=== PATIENT | male | born 1945 | race Caucasian/White ===

== ENCOUNTER 2018-08-28 21:19 | Observation (INO) | payer MEDICARE, OTHER ==
[2018-08-28 22:05] LABS: ALB/GLOB RATIO 1.2 (1.1-1.8); ALBUMIN 4.2 g/dL (3.0-4.8); BLOOD UREA NITROGEN 12 mg/dL (7-21); CALCIUM 9.5 mg/dL (8.4-10.5); GFR NON-AFRICAN AMERICAN > 60
--- NOTE | 2018-08-28 22:07 | ED PDOC ---
Arrival/HPI - General Chief Complaint: Chest Pain Time Seen by Provider: 08/28/18 21:38 Historian: Patient - History of Present Illness Narrative History of Present Illness (Text): 08/28/18 21:58 72yo male with pmhx of hyperlipdemia who present with complaint of intermittent chest pain that radiates to his left arm since 1900 tonight. He describes pain as pressure-like. states he took two tabs of ASA 81mg. States his last stress test was years ago. He called and made an appointment with his [employer] School [employer] today. Denies SOB, diaphoresis, cough fever, chills, dizziness, ROSARIO, orthopnea, ripping/tearing upper back pain, abdominal pain, any other complaint. Past Medical History - Provider Review Nursing Documentation Reviewed: Yes - Psychiatric Hx Substance Use: No Family/Social History - Physician Review Nursing Documentation Reviewed: Yes Family/Social History: Unknown Family HX Smoking Status: Never Smoked Hx Alcohol Use: No Hx Substance Use: No Allergies/Home Meds Allergies/Adverse Reactions: Allergies No Known Allergies Allergy (Verified 08/28/18 21:27) Home Medications: Home Meds Medication Instructions Recorded Confirmed Atorvastatin [Lipitor] 10 tab PO DAILY 08/29/18 08/29/18 RX: Aspirin [Aspirin Chewable] 81 mg pe PO DAILY 08/29/18 08/29/18 Tamsulosin [Flomax] 0.4 cap PO DAILY 08/29/18 08/29/18 Review of Systems - Physician Review All systems were reviewed & negative as marked: Yes - Review of Systems Constitutional: Normal Eyes: Normal ENT: Normal Respiratory: Normal Cardiovascular: Chest Pain. absent: Palpitations, Edema, ROSARIO, Orthopnea Gastrointestinal: Normal Genitourinary Male: Normal Musculoskeletal: Normal Skin: Normal Neurological: Normal Endocrine: Normal Hemo/Lymphatic: Normal Psychiatric: Normal Physical Exam Vital Signs Reviewed: Yes Vital Signs Temp Pulse Resp BP Pulse Ox 08/28/18 21:35 98.4 F 81 17 125/79 99 Temperature: Afebrile Blood Pressure: Normal Pulse: Regular Respiratory Rate: Normal Appearance: Positive for: Well-Appearing, Non-Toxic, Comfortable Pain Distress: None Mental Status: Positive for: Alert and Oriented X 3 - Systems Exam Head: Present: Atraumatic, Normocephalic Pupils: Present: PERRL Extroacular Muscles: Present: EOMI Conjunctiva: Present: Normal Mouth: Present: Moist Mucous Membranes Neck: Present: Normal Range of Motion Respiratory/Chest: Present: Clear to Auscultation, Good Air Exchange. No: Respiratory Distress, Accessory Muscle Use, Wheezes, Decreased Breath Sounds, Retracting Cardiovascular: Present: Regular Rate and Rhythm, Normal S1, S2. No: Murmurs Abdomen: No: Tenderness, Distention, Peritoneal Signs Back: Present: Normal Inspection Upper Extremity: Present: Normal Inspection. No: Cyanosis, Edema Lower Extremity: Present: Normal Inspection. No: Edema Neurological: Present: GCS=15, CN II-XII Intact, Speech Normal Skin: Present: Warm, Dry, Normal Color. No: Rashes Psychiatric: Present: Alert, Oriented x 3, Normal Insight, Normal Concentration Medical Decision Making ED Course and Treatment: 08/29/18 00:39 72yo male in ED for chest pain x few hours. Labs chest xray EKG He took 325mg of ASA at home, EKG NSR chest xray NAD first CE was negative. Secondary to his cardiac risk factors he was placed on OBS for further evaluation case was TAMMIE Moore and she accepted pt for admission. Result and plan was DW the pt and he agreed - RAD Interpretation Radiology Orders: 08/28/18 21:51 CHEST PORTABLE [RAD] Stat Disposition/Present on Arrival - Present on Arrival Any Indicators Present on Arrival: No History of DVT/PE: No History of Uncontrolled Diabetes: No Urinary Catheter: No History of Decub. Ulcer: No History Surgical Site Infection Following: None - Disposition Have Diagnosis and Disposition been Completed?: Yes Diagnosis: Chest pain Disposition: HOSPITALIZED Disposition Time: 22:10 Patient Plan: Admission Patient Problems: Current Active Problems Problem Status Onset Chest pain Acute Condition: FAIR
[2018-08-28 22:12] LABS: BASO # 0.02 K/mm3 (0.0-2.0); BASO % 0.3 % (0.0-3.0); EOS # 0.3 (0.0-0.7); EOS % 4.9 % (1.5-5.0); GRAN # 3.6 (1.4-6.5); GRAN % 55.4 % (50.0-68.0); HEMOGLOBIN 13.5 g/dL (14.0-18.0); LYMPH # 2.1 (1.2-3.4); LYMPH % 31.7 % (22.0-35.0); MEAN CELL VOLUME 93.6 fl (80.0-105.0); MEAN CORPUSCULAR HEMOGLOBIN 29.7 pg (25.0-35.0); MEAN CORPUSCULAR HGB CONC 31.8 g/dl (31.0-37.0); MEAN PLATELET VOLUME 10.7 fl (7.0-11.0); MONO # 0.5 (0.1-0.6); MONO % 7.7 % (1.0-6.0); RBC 4.54 10^6/uL (3.5-6.1); RED CELL DISTRIBUTION WIDTH 13.1 % (11.5-14.5); WHITE BLOOD COUNT 6.5 10^3/uL (4.5-11.0)
[2018-08-28 22:16] LABS: B-TYPE NATRIURETIC PEPTIDE 44.6 pg/mL (0-450); TROPONIN I < 0.01 ng/mL
[2018-08-28 22:18] LABS: ALT/SGPT 27 U/L (7-56); AST/SGOT 28 U/L (17-59); INR 1.11; PARTIAL THROMBOPLASTIN TIME 30.9 Seconds (26.9-38.3); PROTHROMBIN TIME 12.3 SECONDS (9.4-12.5)
[2018-08-29 06:01] VITALS: TEMP 98; O2SAT 97
[2018-08-29 07:26] LABS: URINE APPEARANCE CLEAR (CLEAR); URINE BILIRUBIN NEGATIVE (NEGATIVE); URINE BLOOD NEGATIVE (NEGATIVE); URINE COLOR YELLOW (YELLOW); URINE GLUCOSE (UA) NEGATIVE (NEGATIVE); URINE LEUKOCYTE ESTERASE NEGATIVE Leu/uL (NEGATIVE); URINE PROTEIN NEGATIVE mg/dL (<30 mg/dL); URINE UROBILINOGEN 0.2 E.U./dL (<1 E.U./dL)
--- NOTE | 2018-08-29 08:42 | RAD ---
Date of service: 08/28/2018 HISTORY: chest pain COMPARISON: No prior. FINDINGS: LUNGS: No active pulmonary disease. PLEURA: No significant pleural effusion identified, no pneumothorax apparent. CARDIOVASCULAR: No aortic atherosclerotic calcification present. Normal cardiac size. No pulmonary vascular congestion. OSSEOUS STRUCTURES: No significant abnormalities. VISUALIZED UPPER ABDOMEN: Normal. OTHER FINDINGS: None. IMPRESSION: No active disease.
[2018-08-29] MEDS ORDERED: Aminophylline 25 mg/ml Inj ONE (09:05)
--- NOTE | 2018-08-29 09:40 | CP.PCM.CON ---
History of Present Illness - History of Present Illness History of Present Illness: Awake, alert, no distress, denies chest pain Reason for consultation: Cardiac evaluation of chest pain Brief history of present illness: A 72 year old male who came in to the ER due to intermittent pressure like chest pain that radiates to left arm. He took two aspirin. Denies chest pain now. He claimed to have had a stress test 5 years ago. History of hyperlipidemia. Denies any other medical problems. Poor historian. Seen and examined by me and Dr. Thibodeaux Review of Systems - Review of Systems All systems: reviewed and no additional remarkable complaints except Review of Systems: as per HPI Past Patient History - Past Social History Smoking Status: Never Smoked - CARDIAC Hx Cardiac Disorders: Yes Hx Hypercholesterolemia: Yes - PULMONARY Hx Respiratory Disorders: No (denies) - NEUROLOGICAL Hx Neurological Disorder: Yes (neuropathy) - HEENT Hx HEENT Problems: No (denies) - RENAL Hx Chronic Kidney Disease: No (denies) - ENDOCRINE/METABOLIC Hx Endocrine Disorders: No (denies) - HEMATOLOGICAL/ONCOLOGICAL Hx Blood Disorders: No (denies) - INTEGUMENTARY Hx Dermatological Problems: No (denies) - MUSCULOSKELETAL/RHEUMATOLOGICAL Hx Musculoskeletal Disorders: No (denies) Hx Falls: No - GASTROINTESTINAL Hx Gastrointestinal Disorders: No (denies) - GENITOURINARY/GYNECOLOGICAL Hx Genitourinary Disorders: Yes Hx Prostate Problems: Yes (bph) - PSYCHIATRIC Hx Substance Use: No - SURGICAL HISTORY Hx Surgeries: No (denies) Meds Allergies/Adverse Reactions: Allergies Allergy/AdvReac Type Severity Reaction Status Date / Time No Known Allergies Allergy Verified 08/28/18 21:27 - Medications Medications: Current Medications Aspirin (Aspirin Chewable) 81 mg PO DAILY [facility] Atorvastatin Calcium (Lipitor) 10 mg PO DAILY [facility] Tamsulosin HCl (Flomax) 0.4 mg PO DAILY [facility] Physical Exam - Constitutional Appears: Non-toxic, No Acute Distress - Head Exam Head Exam: NORMAL INSPECTION, NORMOCEPHALIC - Eye Exam Eye Exam: Normal appearance Pupil Exam: NORMAL ACCOMODATION - ENT Exam ENT Exam: Mucous Membranes Moist, Normal Exam - Respiratory Exam Respiratory Exam: Clear to Auscultation Bilateral, NORMAL BREATHING PATTERN - Cardiovascular Exam Cardiovascular Exam: REGULAR RHYTHM, +S1, +S2 Additional comments: Telemetry NSR 70's - GI/Abdominal Exam GI & Abdominal Exam: Normal Bowel Sounds, Soft - Neurological Exam Neurological exam: Alert, Oriented x3 - Psychiatric Exam Psychiatric exam: Normal Affect, Normal Mood - Skin Skin Exam: Dry, Normal Color, Warm Results - Vital Signs Recent Vital Signs: Last Vital Signs Temp 98 F 08/29/18 06:00 Pulse 66 08/29/18 06:00 Resp 20 08/29/18 06:00 BP 100/62 08/29/18 06:00 Pulse Ox 97 08/29/18 06:00 - Labs Result Diagrams: 08/28/18 21:50 08/28/18 21:50 Labs: Laboratory Results - last 24 hr 08/28/18 08/28/18 08/28/18 21:50 21:50 21:50 WBC 6.5 RBC 4.54 Hgb 13.5 L Hct 42.5 MCV 93.6 MCH 29.7 MCHC 31.8 RDW 13.1 Plt Count 288 MPV 10.7 Gran % 55.4 Lymph % (Auto) 31.7 Madison % (Auto) 7.7 H Eos % (Auto) 4.9 Baso % (Auto) 0.3 Gran # 3.60 Lymph # (Auto) 2.1 Madison # (Auto) 0.5 Eos # (Auto) 0.3 Baso # (Auto) 0.02 PT 12.3 INR 1.11 APTT 30.9 Sodium 140 Potassium 4.4 Chloride 104 Carbon Dioxide 31 Anion Gap 10 BUN 12 Creatinine 0.6 L Est GFR ( Amer) > 60 Est GFR (Non-Af Amer) > 60 Random Glucose 114 H Calcium 9.5 Magnesium 2.2 Total Bilirubin 0.3 AST 28 ALT 27 Alkaline Phosphatase 85 Lactate Dehydrogenase 474 Total Creatine Kinase 74 Troponin I < 0.01 NT-Pro-B Natriuret Pep 44.6 Total Protein 7.7 Albumin 4.2 Globulin 3.5 Albumin/Globulin Ratio 1.2 Urine Color Urine Appearance Urine pH Ur Specific Fowler Urine Protein Urine Glucose (UA) Urine Ketones Urine Blood Urine Nitrate Urine Bilirubin Urine Urobilinogen Ur Leukocyte Esterase 08/29/18 08/29/18 02:05 07:00 WBC RBC Hgb Hct MCV MCH MCHC RDW Plt Count MPV Gran % Lymph % (Auto) Madison % (Auto) Eos % (Auto) Baso % (Auto) Gran # Lymph # (Auto) Madison # (Auto) Eos # (Auto) Baso # (Auto) PT INR APTT Sodium Potassium Chloride Carbon Dioxide Anion Gap BUN Creatinine Est GFR ( Amer) Est GFR (Non-Af Amer) Random Glucose Calcium Magnesium Total Bilirubin AST ALT Alkaline Phosphatase Lactate Dehydrogenase Total Creatine Kinase Troponin I < 0.01 NT-Pro-B Natriuret Pep Total Protein Albumin Globulin Albumin/Globulin Ratio Urine Color Yellow Urine Appearance Clear Urine pH 7.0 Ur Specific Fowler 1.020 Urine Protein Negative Urine Glucose (UA) Negative Urine Ketones Negative Urine Blood Negative Urine Nitrate Negative Urine Bilirubin Negative Urine Urobilinogen 0.2 Ur Leukocyte Esterase Negative Assessment & Plan - Assessment and Plan (Free Text) Assessment: A 72 year old male who came in to the ER due to intermittent pressure like chest pain that radiates to left arm. He took two aspirin. Denies chest pain now. He had a stress test 5 years ago. History of hyperlipidemia.Denies any other medical problems. Poor historian. His adult school teacher is Dr. Rutledge but did not follow up for few years. Troponin normal. EKG normal, normal sinus rhythm, no ischemia. Due to cardiovascular risk, Will order Stress test and Echo. [place] previous cardiac [place] [facility] [place] Plan: Denies chest pain now For stress test today to rule out ischemia For Echo today to evaluate LV function Stable blood pressure stable heart rate On ASA 81 mg daily,Lipitor 10 mg daily, Flomax 0.4 mg daily Continue current treatment Continue current medications Will follow up Lipid panel,TSH and HgbA1C Further recommendations during hospital course Plan and treatment discussed with Dr. Thibodeaux Thank you Dr. Moore for the opportunity of taking care of Anastasia Ward - Date & Time Date: 08/29/18 Time: 06:30
[2018-08-29 11:06] VITALS: BP 120/80
[2018-08-29 12:05] VITALS: RESP 18
--- NOTE | 2018-08-29 12:05 | CP.PCM.APN ---
Subjective - Date & Time of Evaluation Date of Evaluation: 08/29/18 Time of Evaluation: 10:00 - Subjective Subjective: pt off floor at stress test Objective - Vital Signs/Intake and Output Vital Signs (last 24 hours): Temp Pulse Resp BP Pulse Ox 98 F 71 20 120/80 97 08/29/18 06:00 08/29/18 11:03 08/29/18 06:00 08/29/18 11:03 08/29/18 06:00 Intake and Output: 08/29/18 08/29/18 06:59 18:59 Intake Total 520 Balance 520 - Medications Medications: Current Medications Aspirin (Aspirin Chewable) 81 mg PO DAILY [facility] Atorvastatin Calcium (Lipitor) 10 mg PO DAILY [facility] Tamsulosin HCl (Flomax) 0.4 mg PO DAILY [facility] - Labs Labs: 08/28/18 21:50 08/28/18 21:50 PT 12.3 SECONDS (9.4-12.5) 08/28/18 21:50 INR 1.11 08/28/18 21:50 APTT 30.9 Seconds (26.9-38.3) 08/28/18 21:50 Assessment and Plan - Assessment and Plan (Free Text) Plan: Cardiology / EKG Studies 08/28/18 21:33 ELECTROCARDIOGRAM Stat Comment: Reason For Exam: Chest Pain 72 yr old with pmh sig for HLD c/o intermittent chest pain now admitted for further eval . # cp troponins normal EKG normal pt at stress test will follow up Ophelia Franz APN BPCI/TIC - BPCIA/TIC Educated pt/family on BPCIA/CIR/Med to Bed Programs: N/A Flyers given, including [facility] Beneficiary letter: N/A Pt/family verbalized understanding & agreed to program: N/A
--- NOTE | 2018-08-29 13:41 | CARD ---
APPROVED REPORT Date of service: 08/28/2018 EKG Measurement Heart [id number] <Conclusion> Normal sinus rhythm Normal ECG
[2018-08-29 14:02] VITALS: PULSE 85
--- NOTE | 2018-08-29 16:37 | CARD ---
APPROVED REPORT Date of service: 08/29/2018 EXAM: Two-dimensional and M-mode echocardiogram with Doppler and color Doppler. INDICATION Chest Pain 2D DIMENSIONS Left Atrium (2D)3.1 (1.6-4.0cm)IVSd1.0 (0.7-1.1cm) LVDd3.5 (3.9-5.9cm)PWd0.9 (0.7-1.1cm) LVDs2.4 (2.5-4.0cm)FS (%) 31.4 % LVEF (%)60.3 (>50%) M-Mode DIMENSIONS Aortic Root3.40 (2.2-3.7cm)Aortic Cusp Exc.2.10 (1.5-2.0cm) Aortic Valve AoV Peak Fmkcsddx623.0cm/Magalys Peak GR.8mmHg Mitral Valve MV E Mhrtrfet84.7cm/sMV A Fixweazz12.4cm/sE/A ratio0.7 TDI Lateral E' Peak V9.36cm/sMedial E' Peak V6.14cm/sE/Lateral E'6.9 E/Medial E'10.5 Pulmonary Valve PV Peak Yfshhjbg70.1cm/sPV Peak Grad.2mmHg Tricuspid Valve TR Peak [id number]/sRAP [id number] Peak Gr.24mmHg [id number] LEFT VENTRICLE The left ventricle is normal size. There is normal left ventricular wall thickness. The left ventricular function is normal.EF-55-60% There is normal LV segmental wall motion. Transmitral Doppler flow pattern is Grade III-reversible restrictive diastolic dysfunction. No left ventricle thrombus noted on this study. There is no ventricular septal defect visualized. There is no left ventricular aneurysm. There is no mass noted in the left ventricle. RIGHT VENTRICLE The right ventricle is normal size. There is normal right ventricular wall thickness. The right ventricular systolic function is normal. ATRIA The left atrium size is normal. The right atrium size is normal. The interatrial septum is intact with no evidence for an atrial septal defect. AORTIC VALVE The aortic valve is moderately thickened but opens well. No aortic regurgitation is present. There is no aortic valvular stenosis. There is no aortic valvular vegetation. MITRAL VALVE The mitral valve is thickened but opens well. Mitral regurgitation is trace. There is no mitral valve stenosis. There is no evidence of mitral valve prolapse. TRICUSPID VALVE The tricuspid valve leaflets are thickened , but open well. There is mild tricuspid regurgitation.RVP-34 mmof Hg There is no tricuspid valve stenosis. There is no tricuspid valve prolapse or vegetation. PULMONIC VALVE The pulmonary valve is normal in structure. There is no pulmonic valvular regurgitation. There is no pulmonic valvular stenosis. GREAT VESSELS The aortic root is normal in size. The ascending aorta is normal in size. The pulmonary artery is normal. The IVC is normal in size and collapses >50% with inspiration. PERICARDIAL EFFUSION There is no pleural effusion. There is a circumferential pericardial effusion. <Conclusion> Normal chamber Size. EF-55-60%. Mitral regurgitation is trace. There is mild tricuspid regurgitation.RVP-34 mmof Hg The IVC is normal in size and collapses >50% with inspiration. There is a circumferential pericardial effusion.
--- NOTE | 2018-08-29 22:13 | CARD ---
APPROVED REPORT Date of service: 08/29/2018 Height:5 ft 9 in Weight:150lbs Submaximum (85%): 0 bpm Electronically Approved: 08/29/2018 10:59:13 EXAM: Myocardial Perfusion REST/STRESS Stress Test Type: Exercise Treadmill Imaging Protocol The imaging protocol used to acquire images was Rest Tc-99m/stress Tc-99m 1 day Rest Spect myocardial perfusion imaging was performed in supine position 50 minutes following the injection of 10.3 mCi of Tc-99 Myoview. At peak stress, the patient was injected intravenously with 30.9mCi of Tc-99 tetrofosmin after an exercise time of 12 minutes and 00 seconds. Gated Stress Spect was performed 80 minutes after intravenous Tc-99 Myoview injection. The images were gated to evaluate regional wall motion and calculate ventricular ejection fraction.Images were reconstructed using backfilter projection method in short horizontal and verticle long axis. Spect slices were generated. LV Perfusion The quality of the study is good. The left ventricle is normalin size. The right ventricle is prominent. The lung uptake is borderline increased. The distribution of tracer reveals moderately decreased perfusion involving distal anterior/ apical wall and moderately to severely decreased perfusion involving most of the inferior wall on the stress study. The remainder of the LV myocardium is unremarkable. The rest myocardial perfusion study shows no significant improvement of the defects. Wall Motion Wall motion study shows normal contractility of the left ventricle. LVEF = 65%. Conclusion 1. Probably abnormal SPECT myocardial perfusion study. 2. Fixed, distal anterior / apical defect is suggestive of myocardial injury.. 3. Fixed, inferior Portion of the defect could be due to daphragmatic attenuation or previous myocardial injury. 4. Normal gated wall motion of the left ventricle.
== END 2018-08-29 17:01 | disposition home or self-care (01) ==
LOC: ED 21:19 → ERH 22:16 → 2RSO 23:15
PROVIDERS: ADMIT Internal Medicine; ATTEND Internal Medicine
DX: R07.9 Chest pain, unspecified (principal); G62.9 Polyneuropathy, unspecified; E78.5 Hyperlipidemia, unspecified; N40.0 Benign prostatic hyperplasia without lower urinary tract symptoms; Z79.82 Long term (current) use of aspirin
CPT/HCPCS: 36415; 71045; 78452; 80053; 81003; 82550; 83615; 83735; 83880; 84484; 85025; 85610; 85730; 93005; 93017; 93306; 99285; A9502; G0378